=== PATIENT | female | born 1985 | race Two or more races ===

== ENCOUNTER 2025-08-06 02:11 | Emergency (ER) | payer MEDICAID ==
[~2025-08-06] VITALS: Ht 157.5 cm; Wt 70.0 kg
[2025-08-06 02:16] VITALS: TEMP 98.8
[2025-08-06] MEDS: IBUPROFEN 600 MG TABLET PO ONE (04:45)
[2025-08-06 04:52] VITALS: BP 129/77; PULSE 89; RESP 18; O2SAT 100
== END 2025-08-06 06:20 | disposition home or self-care (01) ==
LOC: EMS 02:20
DX: S93.401A Sprain of unspecified ligament of right ankle, initial encounter (principal); F17.210 Nicotine dependence, cigarettes, uncomplicated; Z91.030 Bee allergy status; X58.XXXA Exposure to other specified factors, initial encounter; Y93.89 Activity, other specified; Y92.89 Other specified places as the place of occurrence of the external cause; Y99.8 Other external cause status
CPT/HCPCS: 99283